=== PATIENT | female | born 1960 | race Hispanic/Latino ===

== ENCOUNTER 2024-10-24 19:26 | Emergency (ER) | payer OTHER, SELFPAY ==
[2024-10-24 19:27] VITALS: BP 143/63
[2024-10-24 19:50] LABS: % Basophils 0.4 % (0-2); % Eosinophils 0.8 % (0-6); % Immature Granulocytes 0.1 % (0-0.5); % Lymphocytes 32.7 % (20.5-51.1); % Monocytes 7.8 % (1.7-9.3); % Neutrophils 58.2 % (42.2-75.2); Absolute Eosinophils 0.1 10^3/uL (0-0.7); Absolute Lymphocytes 2.4 10^3/uL (1.2-3.4); Absolute Monocytes 0.6 10^3/uL (0.1-0.6); Absolute Neutrophils 4.3 10^3/uL (1.4-6.5); Hematocrit 38.9 % (37.0-47.0); Hemoglobin 13.9 g/dL (12.0-16.0); Mean Corp Hgb Conc. 35.7 g/dL (33.0-37.0); Mean Corpuscular Hgb 32.3 pg (27.0-31.0); Mean Corpuscular Volume 90.3 fL (81.0-99.0); Mean Platelet Volume 10.5 fL (7.4-10.4); Nucleated Red Blood Cells % 0 %; Platelet Count 217 10^3/uL (130-400); Red Blood Cell Count 4.31 10^6/uL (4.20-5.40); Red Cell Dist. Width 12.2 % (11.5-14.5); White Blood Cell Count 7.4 10^3/uL (4.8-10.8)
[2024-10-24 19:54] LABS: Urine Albumin Negative (Neg - Trace); Urine Bilirubin Negative (Negative); Urine Character Clear (Clear); Urine Color Yellow; Urine Glucose Negative (Negative); Urine Ketone Negative (Negative); Urine Leukocyte Negative (Negative); Urine Nitrite Negative (Negative); Urine Occult Blood Negative (Negative); Urine Specific Gravity 1.005 (<1.030); Urine Urobilinogen Negative (Neg - 1+)
[2024-10-24 20:02] LABS: ALT (SGPT) 19 U/L (0-35); AST (SGOT) 24 U/L (14-36); Albumin 4.2 g/dl (3.5-5.0); Alkaline Phosphatase 125 U/L (38-126); Blood Urea Nitrogen 14 mg/dl (7-17); Calcium 9.6 mg/dl (8.4-10.2); Carbon Dioxide 31 mmol/L (22-30); Chloride 102 mmol/L (98-107); Glucose 96 mg/dl (70-99); Potassium 3.8 mmol/L (3.5-5.1); Sodium 139 mmol/L (135-145); Total Bilirubin 0.4 mg/dl (0.2-1.3); Total Protein 6.8 g/dl (6.3-8.2); eGFR > 60.00
--- NOTE | 2024-10-24 22:04 | ED.GENMED ---
History of Present Illness
General
Chief Complaint: Abdominal Pain
Source: patient
Exam Limitations: none
Time Seen by Provider: 10/24/24 21:46
History of Present Illness
History of Present Illness:
64-year-old female presents with right lower abdominal pain getting worse over the past 2 days. Is worse with walking. Does not really radiate to the back. No urinary symptoms or fever. She notes a good appetite. No prior abdominal surgical
history. No identifying alleviating or aggravating factors.
Past History
Past History
ED Past Medical History: None
ED Past Surgical History: Gynecological (Hysterectomy) and Other (Umbilical hernia)
Social History
Tobacco: Non-smoker
Alcohol: None
Drug: None
Personal:
Living: with family
Employment: Employed
Family History
Family History: Negative Early CAD
Phy Exam
Physical Exam
Physical Exam:
General: Well-appearing female no acute respiratory distress
HEENT: Normocephalic atraumatic
Heart: Regular rate and rhythm
Lungs: Clear no wheeze
Abdomen: Soft tender to the right lower quadrant no guarding or rebound normal bowel sounds nondistended
Extremities: No cyanosis
Course
Orders/Labs/Results
Orders:
Orders
10/24/24 19:39
Complete Blood Count/With Diff Urgent
Comprehensive Metabolic Panel Urgent
Urinalysis Reflex To Culture Urgent
Date Specimen was Collected: 10/24/24
Time Specimen was Collected: 19:31
10/24/24 21:55
CT Abd/pelvis W Iv Cont Urgent
Comment:
Reason For Exam: rlq pain
Ketorolac [Toradol] 15 mg IV NOW STA
Abnormal Lab Results
10/24/24
19:39
MCH 32.3 H pg
(27.0-31.0)
MPV 10.5 H fL
(7.4-10.4)
Carbon Dioxide 31 H mmol/L
(22-30)
10/24/24 19:39
10/24/24 19:39
Vital Signs
Initial and Last Documented VS:
Initial Vital Signs
Temp Pulse Resp BP Pulse Ox
98.3 F 60 18 143/63 100
10/24/24 19:27 10/24/24 19:27 10/24/24 19:27 10/24/24 19:27 10/24/24 19:27
Last Documented Vital Signs
Temp Pulse Resp BP Pulse Ox
98.3 F 60 16 133/57 99
10/24/24 19:27 10/24/24 19:27 10/24/24 22:18 10/24/24 22:16 10/24/24 22:16
MDM/Problems Addressed
Differential Diagnosis Includes:
Right lower abdominal pain. Consider appendicitis versus constipation versus renal colic
Toradol given for pain. Labs reviewed normal white count and urinalysis negative. Given tenderness on exam will order CT scan of ab
*Critical Care Note
Total Time (30-74mins, 75-104mins- exclusive of procedures): Not Applicable
Update Note
Update Note:
CT negative for acute finding there is mild to moderate stool throughout the colon to suggest constipation. Labs reviewed white count normal urinalysis negative. Patient feels slightly improved after Toradol. She is nontoxic upon reassessment
tolerating oral fluids. No indication for admission. Stable for discharge
ED Attending Note
-
Portions of this chart may have been created with voice recognition software.� Occasional wrong word or��sound alike� substitutions may have occurred due to the inherent limitations of voice recognition software.
Discharge Plan
Departure
Patient Disposition: Home (Routine Discharge)
Date of Disposition: 10/24/24
Time of Disposition: 23:35
Patient with high blood pressure during this ER visit?: No
Discharge Problem:
Abdominal pain
Instructions: Abdominal Pain
Referrals:
Shawna Bryan PA-C [Family Provider] -
Activity Restrictions/Additional Instructions:
You may take stool softeners if needed for constipation. You may also use Tylenol or ibuprofen if needed for pain. Please return here for worsening symptoms otherwise follow-up with your doctor
Interventions
Interventions:
*Risk Screen - Suicide Last Done: 10/24/24 19:27
*General Assessment Last Done: 10/24/24 19:27
*Neglect/Abuse Screening Last Done: 10/24/24 19:27
*ED COVID-19 Vaccine History Last Done: 10/24/24 21:50
XG-Sbhuwy-[id number] Assessment Last Done: 10/24/24 22:18
Discharge Date and Time
Print Language: SWISS
[2024-10-24] MEDS: TORADOL 15 MG IV (22:12)
[2024-10-24 22:16] VITALS: BP 133/57
[2024-10-25 00:18] VITALS: BP 123/51
[2024-10-25 00:26] VITALS: BP 123/51
== END 2024-10-25 00:28 | disposition home or self-care (01) ==
LOC: EMR 19:26
PROVIDERS: Student in an Organized Health Care Education/Training Program; EMERGENCY PHYSICIAN Student in an Organized Health Care Education/Training Program; FAMILY PHYSICIAN Physician Assistant
DX: R10.31 Right lower quadrant pain (principal)
CPT/HCPCS: 99285; 96374; 74177; 80053; 81003; 85025; Q9967